=== PATIENT | female | born 1950 | race Caucasian/White ===

== ENCOUNTER → 2023-06-13 | Day surgery (SDC) | payer OTHER ==
[2023-06-13 09:48] LABS: MPV 7.8 fL (7.6-11.3); Platelets 209 thou/uL (152-406)
[2023-06-13 09:51] LABS: Protime INR 1.16
[2023-06-13 10:09] VITALS: BMI 25.7
[2023-06-20 09:33] VITALS: BP 157/65; TEMP 97.2; O2SAT 100
--- NOTE | 2023-06-20 14:23 | RAD REPORT ---
EXAM DESCRIPTION: RAD - Lumbar Puncture For Dx - 06/20/2023 12:03 pm CLINICAL HISTORY: No comparisons COMPARISON: None. TECHNIQUE: The procedure, risks and alternatives to the procedure were discussed with the patient in detail. After answering all questions, both oral and written consent were obtained. Time-out procedu re was performed. The patient was placed in an oblique prone position on the fluoroscopic table. The skin of the lower back was prepped and draped in the usual sterile fashion. After anesthetizing the skin and deeper sof t tissues with 1% lidocaine, a 22 gauge needle was advanced into the thecal sac at the left L3-4 leve l. Return of clear CSF was observed. A total of 12 mL CSF were collected and sent to the lab as ordered. At the conclusion of the procedure the needle was withdrawn and a sterile bandage placed over the pun cture site. The patient tolerated the procedure well without immediate complications. Post-procedure care and precaution instructions were discussed with the patient before the LP procedure. Fluoroscopy time: 0.6 minute IMPRESSION: Successful fluoroscopic guided lumbar puncture. All obtained fluid was sent to the lab f or studies requested by the referring physician.
== END ==
LOC: DS 08:35 → EDSTATUS 10:00 → DS 06-20 08:32
PROVIDERS: ATTEND Psychiatry & Neurology Neurology with Special Qualifications in Child Neurology
DX: F03.90 Unspecified dementia, unspecified severity, without behavioral disturbance, psychotic disturbance, mood disturbance, and anxiety (principal); I10 Essential (primary) hypertension; E78.5 Hyperlipidemia, unspecified; Z53.8 Procedure and treatment not carried out for other reasons
CPT/HCPCS: 36415; 77003; 85049; 85610; 85730

== ENCOUNTER 2023-06-20 09:43 | Day surgery (SDC) | payer OTHER ==
[2023-06-20 12:32] LABS: CSF Glucose 46 mg/dL (40-70)
[2023-06-20 12:39] LABS: Fluid Total Volume 11 ml
[2023-06-20 12:40] LABS: Body Fluid Source CSF; Color of fluid Colorless (COLORLESS)
[2023-06-20 12:41] LABS: Appearance CLEAR (CLEAR); Body Fluid WBC 0 /mm^3
[2023-06-20 15:56] VITALS: BP 153/57; TEMP 97.9; O2SAT 99; BMI 25.7
== END 2023-06-20 14:09 | disposition home or self-care (01) ==
LOC: RAD 09:43 → DS 14:09
PROVIDERS: ATTEND Psychiatry & Neurology Neurology with Special Qualifications in Child Neurology
PROC: 009U3ZX Drainage of Spinal Canal, Percutaneous Approach, Diagnostic (ICD-10-PCS; principal; 2023-06-20)
PROC: B01BZZZ Fluoroscopy of Spinal Cord (ICD-10-PCS; 2023-06-20)
DX: F03.90 Unspecified dementia, unspecified severity, without behavioral disturbance, psychotic disturbance, mood disturbance, and anxiety (principal); I10 Essential (primary) hypertension; E78.5 Hyperlipidemia, unspecified
CPT/HCPCS: 36415; 77003; 82542; 82945; 84157; 89050